=== PATIENT | female | born 1940 | race Caucasian/White ===

== ENCOUNTER → 2017-11-14 08:09 | Outpatient (CLI) | payer MEDICARE, SELFPAY ==
--- NOTE | 2017-11-14 08:12 | RAD_ITS ---
STUDY: X-RAY - RIGHT HUMERUS REASON FOR EXAM: Continued pain, fracture follow-up. TECHNIQUE: 2 view(s) of the humerus. COMPARISON: Radiographs 09/07/2017 and 07/27/2017. FINDINGS: There is an angulated transverse fracture of the midshaft of the humerus with increasing callus formation. There is no demonstrated soft tissue abnormality. RAD/Humerus min 2 Views IMPRESSION: Healing angulated fracture of the humerus with increasing callus formation. Electronically Signed: Leonard Hutchinson MD at 9:38 EST Tel , Service support ,
== END ==
PROVIDERS: Visit Provider Orthopaedic Surgery
DX: S42.321 Displaced transverse fracture of shaft of humerus, right arm (principal)
CPT/HCPCS: 73060

== ENCOUNTER → 2019-08-23 06:11 | Outpatient (CLI) | payer MEDICARE, SELFPAY ==
[2019-08-01 11:07] VITALS: BMI 25.4
--- NOTE | 2019-08-23 06:12 | ECHOD_ITS ---
Reason For Study: s/p CABG Procedure This was a 2D Doppler, Color Flow transthoracic echocardiogram. The exam was of adequate technical quality. Exam performed in department. Left Ventricle Normal LV size. Left ventricular systolic function is normal. The estimated ejection fraction is 60 %. No regional wall motion abnormalities noted. Right Ventricle Normal RV size. Normal systolic function. Atria The left atrium is moderately enlarged. The right atrium is mildly enlarged. No doppler evidence for ASD. Mitral Valve There is no mitral annular calcification. Normal mitral valve. Mild (1+) mitral valve insufficiency. Tricuspid Valve Normal tricuspid valve. Mild tricuspid valve insufficiency. Right ventricular systolic pressure estimated to be 29 mmHg. Aortic Valve Trisinus/trileaflet aortic valve. Normal aortic valve. Mild (1+) aortic valve insufficiency. Pulmonic Valve The pulmonic valve is not well visualized. Trivial pulmonic valve insufficiency. Great Vessels Normal sized aortic root. Pericardium/Pleural No pericardial effusion. MMode/2D Measurements & Calculations LVIDd: 3.7 cm IVSd: 1.4 cm Ao root diam: 3.0 cm LVIDs: 2.6 cm LVPWd: 1.2 cm RVDd: 3.7 cm FS: 29.9 % LAV(MOD-bp): 51.1 ml LVAd ap4: 21.6 cm2 SV(MOD-sp4): 34.3 ml LAV(MOD-bp) Indexed: 30.0 ml/m2 EDV(MOD-sp4): 59.7 ml LAV(MOD-sp2): 67.3 ml EDV(sp4-el): 59.7 ml LAV(MOD-sp4): 37.8 ml LVAs ap4: 12.7 cm2 ESV(MOD-sp4): 25.4 ml ESV(sp4-el): 24.1 ml EF(MOD-sp4): 57.5 % EF(sp4-el): 59.6 % SV(sp4-el): 35.6 ml LA A4 area: 15.7 cm2 LA dimension(2D): 4.5 cm RA A4 area: 14.6 cm2 Doppler Measurements & Calculations MV E max christopher: 82.3 cm/sec Lat Peak E' Christopher: 10.2 cm/sec Med Peak E' Christopher: 5.4 cm/sec MV A max christopher: 72.5 cm/sec E/E' lat: 8.1 E/E' med: 15.4 MV E/A: 1.1 Ao V2 max: 134.0 cm/sec AI max christopher: 419.5 cm/sec LV V1 max: 100.4 cm/sec Ao max P.2 mmHg AI max P.4 mmHg LV V1 max P.0 mmHg Ao V2 mean: 95.0 cm/sec Ao mean P.9 mmHg AI dec slope: 298.6 cm/sec2 Ao V2 VTI: 28.7 cm AI P1/2t: 411.5 msec PA V2 max: 124.7 cm/sec TR max christopher: 253.0 cm/sec TR max P.6 mmHg Interpretation Summary Left ventricular systolic function is normal. The estimated ejection fraction is 60 %. The left atrium is moderately enlarged. The right atrium is mildly enlarged. Mild (1+) mitral valve insufficiency. Mild tricuspid valve insufficiency. Mild (1+) aortic valve insufficiency. Trivial pulmonic valve insufficiency. Right ventricular systolic pressure estimated to be 29 mmHg. Transmitral diastolic flow velocities suggest diastolic dysfunction (pseudonormal pattern). Ordering Physician: Giovanni Haile Referring Physician: Chapito Perez Performed By: Deepthi Lemon, FABBY, RVT
--- NOTE | 2019-08-23 16:35 | STRESSREP_ITS ---
Stress Test Report Date: Procedure: Exercise tolerance test/imaging study Indications: Chest pain; CAD; PCI; CABG Consent: Per the patient Procedure: The patient exercised on a Alec protocol for 5 minutes completing Stage I and 2 minutes of Stage II achieving a peak heart rate of 162 bpm (112 % predicted maximal heart rate) with a peak blood pressure 198/102 mmHg and a peak MET capacity of 7 METs. The baseline ECG demonstrated normal sinus rhythm. The peak exercise ECG demonstrated [id number] nonspecific ST segment variability with approximately 0.5 to 1.0 mm of downsloping/horizontal ST segment depression in leads II, III, aVF, and V5 through V6 with gradual resolution towards baseline in recovery. There were occasional PVCs pretest, during exercise, and recovery and an isolated ventricular triplet during recovery. The functional capacity was considered average. There was no complaint of chest discomfort during exercise or recovery. The examination was discontinued secondary to dyspnea. Impression: 1. Technically adequate (percent predicted maximal heart rate greater than 85%) exercise tolerance test 2. Peak exercise ECG demonstrated [id number] nonspecific ST segment variability with approximately 0.5 to 1.0 mm of downsloping/horizontal ST segment depression in leads II, III, aVF, and V5 through V6 with gradual resolution towards baseline in recovery 3. There were occasional PVCs pretest, during exercise, and recovery and an isolated ventricular triplet during recovery 4. Nuclear images pending Myocardial perfusion imaging study: Technique: The patient was injected with 12.0 mCi of technetium 99m Cardiolite and subsequently rest SPECT Cardiolite nuclear imaging was obtained in the horizontal long, vertical long, and short axis views. The patient exercised on a Alec protocol for 5 minutes completing Stage I and 2 minutes of Stage II achieving a peak heart rate of 162 bpm (112 % predicted maximal heart rate) with a peak blood pressure 198/102 mmHg and a peak MET capacity of 7 METs. The patient was injected with 32.0 mCi of technetium 99m Cardiolite and subsequently stress SPECT Cardiolite nuclear imaging was obtained in the horizontal long, vertical long, and short axis views. A gated Cardiolite study at peak stress was obtained. Interpretation: Rest and stress SPECT Cardiolite nuclear imaging status post realignment, normalization, and attenuation correction, demonstrates at rest the appearance of a small area of diminished tracer uptake near the distal anterior/anteroseptal segments which appears to improve and/or normalize following stress. There is end systolic thickening and brightening. The gated Cardiolite study demonstrates myocardial thickening and inward wall motion. The reported LVEF is 69 %. Impression: 1. Rest and stress SPECT Cardiolite nuclear imaging demonstrate myocardial perfusion changes at rest which appear to improve and/or normalize following stress appearing compatible shifting soft tissue attenuation/artifact with no myocardial perfusion changes considered diagnostic for associated stress-induced myocardial ischemia. 2. The gated Cardiolite study reports an LVEF of 69 %. This note was generated with [employer] software. It may contain incorrect words, spelling, and punctuation that were not noted in checking the note before signing.
== END ==
PROVIDERS: Family Provider Family Medicine; PCP Family Medicine; Referring Provider Internal Medicine Cardiovascular Disease; Visit Provider Internal Medicine Cardiovascular Disease
DX: I25.10 Atherosclerotic heart disease of native coronary artery without angina pectoris (principal); Z95.1 Presence of aortocoronary bypass graft; R06.02 Shortness of breath
CPT/HCPCS: 78452; 93017; 93306; A9500; A4216

== ENCOUNTER → 2020-02-04 08:09 | Outpatient (CLI) | payer MEDICARE, SELFPAY ==
[2020-01-31 08:49] VITALS: BMI 25.9
[2020-02-04 09:46] LABS: AST(SGOT) 31 U/L (15-37); Alanine Aminotransfer ALT/SGPT 39 U/L (13-56); Albumin, Serum 3.7 g/dL (3.2-5.0); Alkaline Phosphatase 168 U/L (45-117); Bilirubin, Direct 0.25 mg/dL (0.00-0.30); Cholesterol 140 mg/dL (200); Globulin 3.8 g/dL (2.2-4.2); High Density Lipoprotein 50 mg/dL; Protein, Total 7.5 g/dL (6.4-8.2); Triglycerides 70 mg/dL; Very Low Density Lipoprotein 14 mg/dL (5-40)
== END ==
PROVIDERS: PCP Family Medicine; Referring Provider Physician Assistant Medical; Visit Provider Physician Assistant Medical
DX: E78.2 Mixed hyperlipidemia (principal); I25.10 Atherosclerotic heart disease of native coronary artery without angina pectoris
CPT/HCPCS: 36415; 80061; 80076

== ENCOUNTER 2020-11-19 09:14 | Outpatient (RCR) | payer MEDICARE, SELFPAY ==
[2020-05-05 11:28] VITALS: BMI 25.7
[2020-11-19] MEDS: COVID-19 VACC, MRNA(PFIZER)/PF 30 MCG/0.3 ML SYRINGE IM (07:32)
[2020-12-10] MEDS: COVID-19 VACC, MRNA(PFIZER)/PF 30 MCG/0.3 ML SYRINGE IM (07:27)
== END 2021-02-16 23:59 ==
LOC: IMMUN 09:14
PROVIDERS: PCP Family Medicine; Visit Provider Family Medicine
DX: Z23 Encounter for immunization (principal)
CPT/HCPCS: 0001A; 0002A; 91300

== ENCOUNTER → 2020-12-24 14:22 | Outpatient (CLI) | payer MEDICARE, SELFPAY ==
--- NOTE | 2020-12-24 14:35 | RAD_ITS ---
STUDY: X-RAY CHEST REASON FOR EXAM: Female, 80 years old. Shortness of breath, edema TECHNIQUE: PA and lateral views of the chest. COMPARISON: 06/01/2011 FINDINGS: There has been median sternotomy/CABG. There is hyperinflation of the lungs consistent with chronic obstructive lung disease (COPD). There is no focal pulmonary consolidation. There is no demonstrated pleural abnormality. Normal size heart. Normal mediastinum and sera. Normal visualized pulmonary arteries. There is atherosclerotic calcification of the aortic arch with tortuosity. There are diffuse degenerative changes of the visualized thoracic spine. Normal visualized ribs, clavicles, and shoulders. There is no demonstrated abnormality of the visualized soft tissue structures of the upper abdomen. RAD/Chest PA and Lateral IMPRESSION: COPD. Lungs are clear. Electronically Signed: Jesus Granger MD at 12:38 EDT Tel , Service support ,
[2020-12-24 15:30] LABS: Hematocrit 42.8 % (37-47); Hemoglobin 13.4 g/dL (12.0-15.0); Mean Corp Hgb Conc 31.3 g/dL (32-36); Mean Corpuscular Hgb 29.2 pg (27.0-32.0); Mean Corpuscular Volume 93.2 fL (81-99); Mean Platelet Vol. 12.4 fl (6.2-12.0); Platelet Count 307 K/mm3 (150-450); RBC Distribution Width CV 12.7 % (11.6-14.6); RBC Distribution Width SD 43.2 fl (35.1-43.9); Red Blood Count 4.59 M/mm3 (4.2-5.4); White Blood Count 8.5 K/mm3 (4.4-11.0)
[2020-12-24 16:00] LABS: Anion Gap 4 (5-15); BUN 11 mg/dL (7-18); BUN/Creat Ratio 15.1 RATIO (10-20); Calcium,Total 9.4 mg/dL (8.5-10.1); Chloride 104 mmol/L (98-107); Creatinine, Serum 0.73 mg/dL (0.55-1.02); EST Glomerular Filtration Rate 82 mL/min (>60); Est Glom Filt Rate - Afr Amer 99 mL/min (>60); Glucose 123 mg/dL (74-106); Potassium 3.9 mmol/L (3.5-5.1); Sodium Level 140 mmol/L (136-145)
[2020-12-24 17:45] LABS: BNP,B-Type NATRIURETIC PEPTIDE 102.7 pg/mL (0-100)
== END ==
PROVIDERS: PCP Family Medicine; Referring Provider Nurse Practitioner Family; Visit Provider Nurse Practitioner Family
DX: R06.02 Shortness of breath (principal); R60.0 Localized edema; I25.10 Atherosclerotic heart disease of native coronary artery without angina pectoris; I10 Essential (primary) hypertension; Z95.1 Presence of aortocoronary bypass graft; Z95.5 Presence of coronary angioplasty implant and graft
CPT/HCPCS: 36415; 71046; 80048; 83880; 85027

== ENCOUNTER → 2021-01-12 07:15 | Outpatient (CLI) | payer MEDICARE, SELFPAY ==
[2020-12-24 15:10] VITALS: BMI 25.7
--- NOTE | 2021-01-12 07:17 | ECHOD_ITS ---
Reason For Study: DYSPNEA/SOB Procedure This was a 2D Doppler, Color Flow transthoracic echocardiogram. The exam was of adequate technical quality. Exam performed in department. Left Ventricle Normal LV size. Moderate concentric left ventricular hypertrophy. Left ventricular systolic function is normal. The estimated ejection fraction is 65 %. No regional wall motion abnormalities noted. Right Ventricle Normal RV size. Normal systolic function. Atria The left atrium is mildly enlarged. Normal right atrium. No doppler evidence for ASD. Mitral Valve There is no mitral annular calcification. Normal mitral valve. Trivial mitral valve insufficiency. Tricuspid Valve Normal tricuspid valve. Trivial tricuspid valve insufficiency. Unable to estimate RV systolic pressure due to insufficient tricuspid regurgitant envelope. Aortic Valve Trisinus/trileaflet aortic valve. Normal aortic valve. Trivial aortic valve insufficiency. Pulmonic Valve The pulmonic valve is not well visualized. Trivial pulmonic valve insufficiency. Great Vessels Normal sized aortic root. Pericardium/Pleural No pericardial effusion. MMode/2D Measurements & Calculations LVIDd: 3.7 cm IVSd: 1.2 cm Ao root diam: 3.3 cm LVIDs: 2.4 cm LVPWd: 1.0 cm RVDd: 3.4 cm FS: 35.9 % LAV(MOD-bp): 62.0 ml LA A4 area: 20.2 cm2 LA dimension(2D): 3.6 cm LAV(MOD-bp) Indexed: 35.8 ml/m2 LAV(MOD-sp2): 62.3 ml LAV(MOD-sp4): 61.7 ml RA A4 area: 14.8 cm2 Time Measurements MV dec time: 0.20 sec Doppler Measurements & Calculations MV E max christopher: 78.2 cm/sec Lat Peak E' Christopher: 8.7 cm/sec Med Peak E' Christopher: 4.8 cm/sec MV A max christopher: 69.9 cm/sec E/E' lat: 9.0 E/E' med: 16.2 MV E/A: 1.1 Ao V2 max: 145.2 cm/sec AI max christopher: 409.3 cm/sec LV V1 max: 114.9 cm/sec Ao max P.4 mmHg AI max P.0 mmHg LV V1 max P.3 mmHg AI dec slope: 266.5 cm/sec2 AI P1/2t: 449.8 msec PA V2 max: 115.8 cm/sec PI dec slope: 225.6 cm/sec2 ECHO/Echo Complete Interpretation Summary Left ventricular systolic function is normal. The estimated ejection fraction is 65 %. Moderate concentric left ventricular hypertrophy. The left atrium is mildly enlarged. Trivial mitral valve insufficiency. Trivial tricuspid valve insufficiency. Trivial aortic valve insufficiency. Trivial pulmonic valve insufficiency. Unable to estimate RV systolic pressure due to insufficient tricuspid regurgita nt envelope. Transmitral diastolic flow velocities suggest diastolic dysfunction (pseudonorm al pattern). Ordering Physician: Loy Lemon Referring Physician: Chapito Perez Performed By: Za Colón RDCS, RVT
--- NOTE | 2021-01-12 12:33 | STRESSREP_ITS ---
Stress Test Report Date: 01-12-2021 Procedure: Exercise tolerance test/imaging study Indications: Shortness of breath/dyspnea on exertion; CAD; CABG Consent: Per the patient Procedure: The patient exercised on a Alec protocol for 4 minutes and 10 seconds completing Stage I and 1 minute and 10 seconds of Stage II achieving a peak heart rate of 157 bpm (110% predicted maximal heart rate) with a peak blood pressure 168/88 mmHg and a peak MET capacity of 6 METs. The baseline ECG demonstrated sinus rhythm. The peak exercise ECG demonstrated somatic/motion artifact with no obvious ECG changes. There was a rare PVC pretest, during exercise, and recovery. The functional capacity was considered average. There was no complaint of chest discomfort during exercise or recovery. The examination was discontinued secondary to shortness of breath; leg discomfort. Impression: 1. Technically adequate (percent predicted maximal heart rate greater than 85%) exercise tolerance test 2. Peak exercise ECG with somatic/motion artifact with no obvious ECG changes 3. There was a rare PVC pretest, during exercise, and recovery 4. Nuclear images pending Myocardial perfusion imaging study: Technique: The patient was injected with 10.4 mCi of technetium 99m Cardiolite and subsequently rest SPECT Cardiolite nuclear imaging was obtained in the horizontal long, vertical long, and short axis views. The patient exercised on a Alec protocol for 4 minutes and 10 seconds completing Stage I and 1 minute and 10 seconds of Stage II achieving a peak heart rate of 157 bpm (110% predicted maximal heart rate) with a peak blood pressure 168/88 mmHg and a peak MET capacity of 6 METs. The patient was injected with 32.7 mCi of technetium 99m Cardiolite and subsequently stress SPECT Cardiolite nuclear imaging was obtained in the horizontal long, vertical long, and short axis views. A gated Cardiolite study at peak stress was obtained. Interpretation: Rest and stress SPECT Cardiolite nuclear imaging status post realignment, normalization, and attenuation correction, demonstrates the appearance of a small area of subtle diminished tracer uptake near the distal anteroseptal segments at both rest and stress without significant change. There is end systolic thickening and brightening. The gated Cardiolite study demonstrates myocardial thickening and inward wall motion. The reported LVEF is 84%. Impression: 1. Rest and stress SPECT Cardiolite nuclear imaging demonstrate a small area of diminished myocardial perfusion/tracer uptake in portions of the distal anteroseptal segments at both rest and stress without significant change appearing compatible with soft tissue attenuation/artifact although an area of previous myocardial injury/infarction cannot necessarily be excluded with no myocardial perfusion changes considered diagnostic for associated stress-induced myocardial ischemia. 2. The gated Cardiolite study reports an LVEF of 84%. This note was generated with [employer] software. It may contain incorrect words, spelling, and punctuation that were not noted in checking the note before signing.
== END ==
PROVIDERS: PCP Family Medicine; Referring Provider Nurse Practitioner Family; Visit Provider Nurse Practitioner Family
DX: I25.10 Atherosclerotic heart disease of native coronary artery without angina pectoris (principal); I10 Essential (primary) hypertension; R06.02 Shortness of breath; Z95.1 Presence of aortocoronary bypass graft; Z95.5 Presence of coronary angioplasty implant and graft
CPT/HCPCS: 78452; 93017; 93306; A9500; A4216

== ENCOUNTER → 2021-02-04 09:32 | Outpatient (CLI) | payer MEDICARE, SELFPAY ==
[2021-02-03 10:59] VITALS: BMI 25.6
[2021-02-04 11:49] LABS: AST(SGOT) 32 U/L (15-37); Alanine Aminotransfer ALT/SGPT 31 U/L (13-56); Albumin, Serum 3.9 g/dL (3.2-5.0); Alkaline Phosphatase 140 U/L (45-117); Bilirubin, Direct 0.23 mg/dL (0.00-0.30); Cholesterol 133 mg/dL (200); Globulin 4.1 g/dL (2.2-4.2); High Density Lipoprotein 55 mg/dL; Triglycerides 68 mg/dL; Very Low Density Lipoprotein 14 mg/dL (5-40)
== END ==
PROVIDERS: PCP Family Medicine; Referring Provider Internal Medicine Cardiovascular Disease; Visit Provider Internal Medicine Cardiovascular Disease
DX: E78.00 Pure hypercholesterolemia, unspecified (principal)
CPT/HCPCS: 36415; 80061; 80076

== ENCOUNTER → 2022-09-01 | Outpatient (CLI) | payer MEDICARE, SELFPAY ==
--- NOTE | 2022-09-01 06:26 | ECHOD_ITS ---
Reason For Study: Chest Pain Procedure This was a 2D Doppler, Color Flow transthoracic echocardiogram. Exam performed in department. Left Ventricle Normal LV size. Mild concentric left ventricular hypertrophy. Left ventricular systolic function is normal. The estimated ejection fraction is 65 %. Diastolic function is indeterminate. No regional wall motion abnormalities noted. Right Ventricle Normal RV size. Normal systolic function. Atria The left atrium is mildly enlarged. Normal right atrium. No doppler evidence for ASD. Mitral Valve There is no mitral annular calcification. Normal mitral valve. The mitral valve chordae are thickened and/or calcified. Trivial mitral valve insufficiency. Tricuspid Valve Normal tricuspid valve. Mild (1+) tricuspid valve insufficiency. Unable to estimate RV systolic pressure due to insufficient tricuspid regurgitant envelope. Aortic Valve Trisinus/trileaflet aortic valve. Normal aortic valve. Trivial aortic valve insufficiency. Pulmonic Valve The pulmonic valve is not well visualized. Trivial pulmonic valve insufficiency. Great Vessels The aortic root is not well visualized. Pericardium/Pleural No pericardial effusion. MMode/2D Measurements & Calculations LVIDd: 4.0 cm IVSd: 1.3 cm LA dimension: 4.2 cm LVIDs: 2.7 cm LVPWd: 1.2 cm RVDd: 3.3 cm FS: 32.5 % LAV(MOD-bp): 65.5 ml LVAd ap4: 23.6 cm2 SV(MOD-sp4): 46.1 ml LAV(MOD-bp) Indexed: 38.6 ml/m2 LVLd ap4: 6.7 cm LAV(MOD-sp2): 57.3 ml EDV(MOD-sp4): 67.6 ml LAV(MOD-sp4): 72.0 ml EDV(sp4-el): 70.5 ml LVAs ap4: 11.1 cm2 LVLs ap4: 5.1 cm ESV(MOD-sp4): 21.5 ml ESV(sp4-el): 20.4 ml EF(MOD-sp4): 68.2 % EF(sp4-el): 71.1 % SV(sp4-el): 50.1 ml LA A4 area: 22.4 cm2 RA A4 area: 17.5 cm2 Time Measurements MV dec time: 0.22 sec Doppler Measurements & Calculations MV E max christopher: 85.8 cm/sec Lat Peak E' Christopher: 10.4 cm/sec Med Peak E' Christopher: 6.4 cm/sec MV A max christopher: 75.1 cm/sec E/E' lat: 8.3 E/E' med: 13.4 MV E/A: 1.1 MV V2 max: 105.6 cm/sec MV P1/2t max christopher: 105.6 cm/sec Ao V2 max: 148.4 cm/sec MV max P.5 mmHg MV P1/2t: 72.7 msec Ao max P.8 mmHg MV V2 mean: 59.2 cm/sec Ao V2 mean: 100.6 cm/sec MV mean P.6 mmHg MV dec slope: 425.6 cm/sec2 Ao mean P.7 mmHg MV V2 VTI: 24.1 cm MVA(P1/2t): 3.0 cm2 Ao V2 VTI: 33.1 cm AV (velocity ratio): 0.81 AI max christopher: 391.4 cm/sec LV V1 max: 119.4 cm/sec MR max christopher: 487.4 cm/sec AI max P.3 mmHg LV V1 max P.7 mmHg MR max P.0 mmHg AI dec slope: 355.7 cm/sec2 LV V1 mean P.1 mmHg AI P1/2t: 322.3 msec LV V1 mean: 82.1 cm/sec LV V1 VTI: 26.8 cm PA V2 max: 119.3 cm/sec ECHO/Echo Complete Interpretation Summary Left ventricular systolic function is normal. The estimated ejection fraction is 65 %. Mild concentric left ventricular hypertrophy. The left atrium is mildly enlarged. The mitral valve chordae are thickened and/or calcified. Trivial mitral valve insufficiency. Mild (1+) tricuspid valve insufficiency. Trivial aortic valve insufficiency. Trivial pulmonic valve insufficiency. Unable to estimate RV systolic pressure due to insufficient tricuspid regurgita nt envelope. Diastolic function is indeterminate. Ordering Physician: Giovanni Haile Referring Physician: Chapito Perez Performed By: Qasim Fry RCS
--- NOTE | 2022-09-01 09:16 | STRESSREP ---
Stress Test Report Date: 09-01-2022 Procedure: Exercise tolerance test/imaging study Indications: Chest pain, CAD, PCI, CABG Consent: Per the patient Procedure: The patient exercised on a Alec protocol for 4 minutes completing Stage I and 1 minute of Stage II achieving a peak heart rate of 160 bpm (113% predicted maximal heart rate) with resting blood pressure of 148/72 mmHg and a peak blood pressure 184/72 mmHg and a peak MET capacity of 6 METs. The baseline ECG demonstrated normal sinus rhythm. The peak exercise ECG demonstrated approximately 0.5 to 1.[address] segment depression in leads I, II, III, aVF, and V4 through V6 with resolution towards baseline beginning less than 1 minute in recovery. There were occasional PACs/repetitive PACs during exercise and a rare PVC/isolated ventricular couplet in recovery. The functional capacity was considered fair. There was chest discomfort and dyspnea at peak exercise. The examination was discontinued secondary to chest discomfort and dyspnea at peak exercise. Impression: 1. Technically adequate (percent predicted maximal heart rate greater than 85%) exercise tolerance test 2. Peak exercise ECG with approximately 0.5 to 1.[address] segment depression in leads I, II, III, aVF, and V4 through V6 with resolution towards baseline beginning less than 1 minute and 3. There were occasional PACs/repetitive PACs during exercise and a rare PVC/isolated ventricular couplet in recovery 4. Nuclear images pending Myocardial perfusion imaging study: Technique: The patient was injected with 10.8 mCi of technetium 99m Cardiolite and subsequently rest SPECT Cardiolite nuclear imaging was obtained in the horizontal long, vertical long, and short axis views. The patient exercised on a Alec protocol for 4 minutes completing Stage I and 1 minute of Stage II achieving a peak heart rate of 160 bpm (113% predicted maximal heart rate) with resting blood pressure of 148/72 mmHg and a peak blood pressure 184/72 mmHg and a peak MET capacity of 6 METs. The patient was injected with 33.4 mCi of technetium 99m Cardiolite and subsequently stress SPECT Cardiolite nuclear imaging was obtained in the horizontal long, vertical long, and short axis views. A gated Cardiolite study at peak stress was obtained. Interpretation: Rest and stress SPECT Cardiolite nuclear imaging status post realignment, normalization, and attenuation correction, demonstrates at rest the appearance of a small area of subtle diminished tracer uptake near the distal anteroseptal/septal apical segments which appears to improve/normalize following stress. Otherwise following stress there appears to be relative uniform tracer uptake and myocardial perfusion appearing within normal limits. There is end systolic thickening and brightening. The gated Cardiolite study demonstrates myocardial thickening and inward wall motion. The reported LVEF is 82%. Impression: 1. Rest and stress SPECT Cardiolite nuclear imaging demonstrate myocardial perfusion changes at rest which appear to improve/normalize following stress appearing compatible with shifting soft tissue attenuation/artifact with no post-stress myocardial perfusion changes considered diagnostic for associated stress-induced myocardial ischemia. 2. The gated Cardiolite study reports an LVEF of 80 to %. This note was generated with [employer] software. It may contain incorrect words, spelling, and punctuation that were not noted in checking the note before signing.
== END | disposition home or self-care (01) ==
LOC: CVS 06:25
PROVIDERS: PCP Family Medicine; Visit Provider Internal Medicine Cardiovascular Disease
DX: R07.9 Chest pain, unspecified (principal); R06.02 Shortness of breath; I25.10 Atherosclerotic heart disease of native coronary artery without angina pectoris; I10 Essential (primary) hypertension; E78.2 Mixed hyperlipidemia; Z95.1 Presence of aortocoronary bypass graft; Z95.5 Presence of coronary angioplasty implant and graft
CPT/HCPCS: 78452; 93017; 93306; A9500; A4216